=== PATIENT | male | born 1955 | race Caucasian/White ===

== ENCOUNTER → 2017-12-01 15:21 | Outpatient (CLI) | payer OTHER, SELFPAY ==
--- NOTE | 2017-12-01 15:27 | BD_ITS ---
STUDY: DUAL ENERGY X-RAY ABSORPTIOMETRY / DXA REASON FOR EXAM: Male, 62 years old. Loss of height. TECHNIQUE: Bone Mineral Density (BMD) measurements of lumbar spine and bilateral hips were obtained. COMPARISON: Comparison is made with prior study dated July 29, 2015. FINDINGS: Lumbar Spine (L1-L4): g/cm2 (1.008) / T-score (-1.6) / Z-score (-1.2) Findings are suggestive of osteopenia with a moderate fracture risk. Left Femur Total: g/cm2 (0.878) / T-score (-1.6) / Z-score (-1.0) Left Femoral Neck: g/cm2 (0.809) / T-score (-2.0) / Z-score (-1.0) Right Femur Total: g/cm2 (0.870) / T-score (-1.6) / Z-score (-1.1) Right Femoral Neck: g/cm2 (0.812) / T-score (-2.0) / Z-score (-1.0) The T-Scores on the most recent prior examination were: Lumbar Spine (L1-L4): There has been worsening of bone density since the previous examination. Left Femur Total: which represents an improvement of 0.5%. Right Femur Total: which represents a worsening of 1.0%. BD/Dexa Bone Density Study IMPRESSION: The patient is considered osteopenic as outlined below according to World [employer] Organization (WHO) criteria with a moderate fracture risk. There has been worsening of bone density since the previous examination. Reference Information: The T-score is the number of standard deviations above or below the standard which is normal for young adults at their peak bone mineral density. The World Health Organization (WHO) interprets the T-scores as follows: Above -1 Normal bone density Between -1 and -2.5 Osteopenia Equal to / or below -2.5 Osteoporosis As a practical clinical guideline, osteopenia may be graded as follows: Mild -1 through -1.5 Moderate -1.6 through -2.0 Severe -2.1 through -2.4 The Z-score is the number of standard deviations above or below age-matched controls. A Z-score of less than -1.5 would be considered abnormal. References: 1. NIH Osteoporosis and Related Bone Diseases http://www.osteo.org 2. International Society for Clinical Densitometry http://www.iscd.org 3. National Osteoporosis Foundation http://www.nof.org Electronically Signed: Keyon Reyes MD at 15:50 EDT Tel [phone], Service support ,
== END ==
PROVIDERS: Family Provider Family Medicine; PCP Family Medicine; Visit Provider Family Medicine
DX: M85.80 Other specified disorders of bone density and structure, unspecified site (principal); M94.9 Disorder of cartilage, unspecified
CPT/HCPCS: 77080

== ENCOUNTER → 2019-06-11 09:31 | Outpatient (CLI) | payer OTHER, SELFPAY ==
[2019-06-11 10:50] LABS: ALB/GLOB Ratio 0.8 RATIO (0.9-2.4); AST(SGOT) 31 U/L (15-37); Alanine Aminotransfer ALT/SGPT 42 U/L (16-61); Albumin, Serum 2.5 g/dL (3.2-5.0); Alkaline Phosphatase 167 U/L (45-117); Anion Gap 3 (5-15); BUN 17 mg/dL (7-18); BUN/Creat Ratio 14.7 RATIO (10-20); Calcium,Total 8.1 mg/dL (8.5-10.1); Chloride 111 mmol/L (98-107); Cholesterol 78 mg/dL (200); Creatinine, Serum 1.16 mg/dL (0.70-1.30); EST Glomerular Filtration Rate 67 mL/min (>60); Est Glom Filt Rate - Afr Amer 82 mL/min (>60); Globulin 3.2 g/dL (2.2-4.2); Glucose 86 mg/dL (74-106); High Density Lipoprotein 30 mg/dL; PSA,Total - Annual Screen 0.71 ng/mL (0.00-4.00); Potassium 4.2 mmol/L (3.5-5.1); Protein, Total 5.7 g/dL (6.4-8.2); Sodium Level 143 mmol/L (136-145); Triglycerides 83 mg/dL; Very Low Density Lipoprotein 17 mg/dL (5-40)
== END ==
PROVIDERS: PCP Family Medicine; Referring Provider Family Medicine; Visit Provider Family Medicine
DX: I10 Essential (primary) hypertension (principal); Z12.5 Encounter for screening for malignant neoplasm of prostate
CPT/HCPCS: 36415; 80053; 80061; 84153; G0103

== ENCOUNTER → 2019-09-04 16:20 | Outpatient (CLI) | payer OTHER, SELFPAY ==
[2019-09-05 08:28] LABS: Hepatitis B Surface Antibody Non-Reactive; Hepatitis B Surface Antigen Non-Reactive (Nonreactive); Hepatitis C Antibody Non-Reactive (Nonreactive)
[2019-09-07 03:06] LABS: QNTFERON TB Mitogen Value > 10.00 IU/mL (.); QNTFERON TB Nil Value 0.03 IU/mL (.); QNTFERON TB1+ Ag Value 0.18 IU/mL (.); QNTFERON TB2+ Ag Value 0.07 IU/mL (.)
[2019-09-07 08:30] LABS: Hepatitis B Core Ab Total Negative (Negative); QNTIFERON TB Positive Criteria Negative (Negative)
== END ==
PROVIDERS: PCP Family Medicine
DX: K50.012 Crohn's disease of small intestine with intestinal obstruction (principal)
CPT/HCPCS: 36415; 86480; 86704; 86706; 86803; 87340

== ENCOUNTER → 2019-11-16 17:55 | Outpatient (CLI) | payer OTHER, SELFPAY | PROVIDERS: PCP Family Medicine | DX: Z11.59 Encounter for screening for other viral diseases (principal) | CPT/HCPCS: 87635; G2023; U0003 ==

== ENCOUNTER 2019-12-12 19:52 | Emergency (ER) | payer OTHER, SELFPAY ==
[2019-12-12 19:53] VITALS: BP 127/82; PULSE 86; RESP 18; TEMP 37; O2SAT 96; BMI 22.6
[2019-12-12 20:34] LABS: Absolute Lymphocyte Count 1.16 X10^3/uL (0.83-4.51); Absolute Neutrophil Count 6.7 X10^3/uL (2.0-7.7); Basophil# 0.04 X10^3/uL; Basophil% 0.5 % (0-1); Eosinophil# 0.08 X10^3/uL; Eosinophils% 0.9 % (0-5); Hematocrit 35.3 % (40-54); Hemoglobin 11.4 g/dL (13.0-16.5); Lymphocyte # 1.16 X10^3/ul (4.0); Lymphocyte % 13.2 % (19-41); Mean Corp Hgb Conc 32.3 g/dL (32-36); Mean Corpuscular Hgb 28.9 pg (27.0-32.0); Mean Corpuscular Volume 89.4 fL (80-94); Mean Platelet Vol. 12.5 fl (6.2-12.0); Monocyte% 9.1 % (0-10); NRBC Flagged by Analyzer 0 % (0-5); Neutrophil # 6.66 X10^3/uL (2.7-7.7); Platelet Count 298 K/mm3 (150-450); RBC Distribution Width CV 13.5 % (11.6-14.6); RBC Distribution Width SD 44.8 fl (35.1-43.9); Red Blood Count 3.95 M/mm3 (4.6-6.2); White Blood Count 8.8 K/mm3 (4.4-11.0)
[2019-12-12 20:53] LABS: Anion Gap 5 (5-15); BUN 19 mg/dL (7-18); BUN/Creat Ratio 20.7 RATIO (10-20); Calcium,Total 7.8 mg/dL (8.5-10.1); Chloride 107 mmol/L (98-107); Creatinine, Serum 0.92 mg/dL (0.70-1.30); EST Glomerular Filtration Rate 88 mL/min (>60); Est Glom Filt Rate - Afr Amer 107 mL/min (>60); Estimated Creatinine Clearance 84.31 ml/min; Glucose 117 mg/dL (74-106); Potassium 3.8 mmol/L (3.5-5.1); Sodium Level 141 mmol/L (136-145)
--- NOTE | 2019-12-12 21:35 | CT_ITS ---
STUDY: CT ABDOMEN AND PELVIS WITH CONTRAST REASON FOR EXAM: Male, 64 years old. UPPER ABD PAIN, NAUSEA, DIARRHEA, HX SMALL BOWEL REMOVED DUE TO CHRONS RADIATION DOSAGE (If Supplied By Facility): CTDIvol = ( 9.97 ) mGy, DLP = ( 545.49 ) mGycm TECHNIQUE: Transaxial images were obtained from the dome of the diaphragm to the symphysis pubis without oral contrast. Oral and amp; IV Breeza and amp; 100mL Isovue-370 was administered. Sagittal and coronal images were reconstructed. Individualized dose optimization techniques were used for this CT. COMPARISON: None. FINDINGS: The visualized lung bases are unremarkable. The visualized portions of the heart are within normal limits. Markedly abnormal GI tract. Distended stomach filled with fluid almost all of the small bowel is markedly distended filled with reduction with a transition point seen in the anterior lower abdomen just to the right midline on axial image [id number] and coronal images 15-5. Beyond this point there is collapsed, normal caliber small bowel leading up to a markedly distended filled bowel in greatest dimension in the right upper quadrant. Surgical clips are seen in same area, findings could represent obstruction related to combination of active Crohn''s disease with narrowing, and stricture from surgical anastomosis. Several distended small bowel are surrounded by edema, especially in the mid and upper right abdomen where there is free fluid. There is also free fluid in the pelvis. Normal large bowel. Normal appendix. Normal liver. Distended gallbladder, and normal extrahepatic biliary system. Normal spleen. Normal pancreas. Normal bilateral adrenal glands. Normal right kidney. Normal left kidney. Segmental bilateral tiny parenchymal cysts. Normal abdominal aorta. Normal inferior vena cava. Normal retroperitoneum. Normal urinary bladder. Normal abdominal wall. Normal osseous structures. CT/Abdomen/Pelvis WITH Contrast IMPRESSION: Markedly abnormal GI tract. Findings most consistent with severe distal small bowel obstruction probably related to a combination of stricture from active Crohn''s disease, and possibly also postsurgical stricture. Small amount of free fluid. Electronically Signed: Leo Monge MD at 23:37 EDT , Service support ,
[2019-12-12 21:39] LABS: AST(SGOT) 24 U/L (15-37); Alanine Aminotransfer ALT/SGPT 30 U/L (16-61); Albumin, Serum 2.2 g/dL (3.2-5.0); Alkaline Phosphatase 134 U/L (45-117); Globulin 3.1 g/dL (2.2-4.2); Lipase 67 U/L (73-393); Protein, Total 5.3 g/dL (6.4-8.2)
--- NOTE | 2019-12-12 22:09 | ED.VIS.GEN ---
History of Present Illness <Darlene Caraballo - Last Filed: 12/13/19 01:02> Informant: Patient Narrative: Patient is a 64-year-old male with a history of Crohn's disease and hypertension who presents to the emergency department for abdominal pain as well as nausea/vomiting. Initial symptoms started yesterday. Last week he did have a similar episode which lasted a few days. He was not seen at that time and it did pass on its own. He states that the pain comes and goes. He currently rates it as a 2 out of 10 in the epigastric/right upper quadrant. Does get up to an 8 out of 10 at times. He describes it as a tight pain. He does not know aggravating or relieving factors. He is on Humira for his Crohn's disease. He has been compliant. He does have a history of bowel obstruction and believes that this is similar symptoms to what he has had previously. He has had 2 resections due to obstructions in the past. No other abdominal surgeries. Denies any fevers or chills. Last bowel movement was yesterday and was normal. Denies any black or tarry stools. Denies any blood in stool. Denies any urinary symptoms. History of kidney stones but does not have any flank pain. <JimmyMiller - Last Filed: 12/13/19 17:47> Chief Complaint: Abd Pain Past Medical History <Darlene Caraballo - Last Filed: 12/13/19 01:02> Prior records reviewed: Yes Past Medical History: - - Crohn's, hypertension Surgical History: - - Operations for small bowel obstructions. Drugs: None <CoydieterMiller - Last Filed: 12/13/19 17:47> - Allergies and Home Meds Allergies/Adverse Reactions: Allergies Penicillins Allergy (Verified 12/12/19 19:55) Rash Primary Care Physician: Pal Johnson MD [Primary Care Provider] - Review of Systems All systems negative except as indicated General: Denies: Chills, Fever, Sweats Eyes: Denies: Visual changes - bilaterally, Diplopia ENT: Denies: Rhinorrhea, Sore throat Cardiovascular: Denies: Chest pain, Palpitations Respiratory: Denies: Dyspnea, Cough, Dyspnea on exertion Gastrointestinal: Reports: Abdominal pain, Nausea, Vomiting. Denies: Diarrhea, Melena, Hematochezia Genitourinary: Denies: Dysuria, Hematuria, Frequency Musculoskeletal: Denies: Back pain, Extremity Pain Skin: Denies: Rash, Wounds Neurological: Denies: Headache, Weakness, Numbness <CoyryderzeinaMiller - Last Filed: 12/13/19 17:47> Physical Exam Vital Signs/Narrative: Vital Signs Resp 12/12/19 22:54 18 <Darlene Caraballo - Last Filed: 12/13/19 01:02> Vital Signs/Narrative: Vital Signs Temp Pulse Resp BP Pulse Ox 12/12/19 19:53 98.6 F 86 18 127/82 H 96 Inital Vital Signs reviewed: Yes General: Well nourished, Well developed, No Acute Distress Head: Normocephalic, Atraumatic Eyes: Perrl, EOMI ENT: Moist mucous membranes, No rhinorrhea Neck: Supple, Nontender Cardiovascular: Regular rate, Regular rhythm, No murmurs Respiratory: No distress, CTA bilaterally, Chest nontender Abdomen: Soft, Nondistended, Normal bowel sounds, Tender - Mostly in the right upper quadrant as well as epigastrium, - - No pain over McBurney's point.. Negative for: Guarding, Rebound tenderness Back: Nontender, Normal Inspection. Negative for: CVA tenderness, Spinal tenderness Extremities: Nontender, No edema. Negative for: Edema, Calf Tenderness Skin: Normal color, No rash Neurological: Alert, Oriented x3, Cranial nerves II-XII grossly intact, Normal Strength, Normal Sensation Psychological: Normal affect, Normal Mood <Miller Marquez - Last Filed: 12/13/19 17:47> Diagnostic/Tx/Re-eval Clinical Impression(s) from Imaging Studies Abdomen/Pelvis CT 12/12/19 21:35 IMPRESSION: Markedly abnormal GI tract. Findings most consistent with severe distal small bowel obstruction probably related to a combination of stricture from active Crohn''s disease, and possibly also postsurgical stricture. Small amount of free fluid. Electronically Signed: Leo Monge MD at 23:37 EDT , Service support , Laboratory Data 12/12/19 12/12/19 12/12/19 20:25 20:25 20:25 WBC 8.8 RBC 3.95 L Hgb 11.4 L Hct 35.3 L MCV 89.4 MCH 28.9 MCHC 32.3 RDW Std Deviation 44.8 H RDW Coeff of Axel 13.5 Plt Count 298 MPV 12.5 H Immature Gran % (Auto) 0.300 Neut % (Auto) 76.0 H Lymph % (Auto) 13.2 L [place] % (Auto) 9.1 Eos % (Auto) 0.9 Baso % (Auto) 0.5 Absolute Neuts (auto) 6.7 Absolute Lymphs (auto) 1.16 Nucleated RBC % 0 Sodium 141 Potassium 3.8 Chloride 107 Carbon Dioxide 29.0 Anion Gap 5 BUN 19 H Creatinine 0.92 Estim Creat Clear Calc 84.31 Est GFR (MDRD) Af Amer 107 Est GFR (MDRD) Non-Af 88 BUN/Creatinine Ratio 20.7 H Glucose 117 H Calcium 7.8 L Total Bilirubin 0.30 Direct Bilirubin 0.10 AST 24 ALT 30 Alkaline Phosphatase 134 H Total Protein 5.3 L Albumin 2.2 L Globulin 3.1 Lipase 67 L - Medical Decision Making Signed out to me by Dr. Marquez. CT scan shows market dilation of the small bowel with a transition point distally. NG tube is placed. Patient is requesting transfer back to [facility] where he sees all of his specialist and has had his prior care for his mall bowel obstructions. Given that patient is a complex medical history of prior surgeries no issue I think that is medically indicated that he go back to [facility]. Patient has 600 cc of feculent gastric content immediately out of his NG tube. He is given morphine for pain control as well as maintenance fluids. Is accepted to [facility] by Dr. Hopkins to the ED. <Darlene Caraballo - Last Filed: 12/13/19 01:02> - Medical Decision Making Patient presents to the ED for abdominal pain and nausea/vomiting. He does relate this to his history of small bowel obstructions with his Crohn's history. On physical exam vital signs within normal limits. Does have tenderness on exam. Given his history we will do a CT scan of the abdomen/pelvis. Basic lab work obtained. Patient does not wear anything for pain at this time as it is not currently flared up. Lab work did not reveal any significant acute abnormality. Currently waiting on CT scan. Will do with IV and oral contrast. This is the end of my shift so will sign out to oncoming attending. Disposition based on CT scan findings. <Miller Marquez - Last Filed: 12/13/19 17:47> ED Disposition <Darlene Caraballo - Last Filed: 12/13/19 01:02> <Miller Marquez - Last Filed: 12/13/19 17:47> - Plan for ED Patient: Disposition: [facility] Diagnosis: Small bowel obstruction, History of Crohn's disease Referrals: Pal Johnson MD [Primary Care Provider] -
[2019-12-12 22:54] VITALS: RESP 18
[2019-12-12] MEDS: Lidocaine 4% 5 ML Ampul 2 ML INHALATION (23:53)
--- NOTE | 2019-12-13 00:02 | RAD_ITS ---
STUDY: X-RAY - ABDOMEN/PELVIS REASON FOR EXAM: Male, 64 years old. ng tube placement TECHNIQUE: Frontal view COMPARISON: None. FINDINGS: The NG tube is in the stomach. There are dilated and air-filled loops of small bowel and colon suggesting generalized ileus. There is NO bowel wall thickening. There is no demonstrated free abdominal air. The visualized liver, spleen and kidneys are grossly normal in size and morphology. Normal soft tissue structures. Normal visualized osseous structures. RAD/Abdomen Single View (Portable) IMPRESSION: The NG tube is properly in the stomach. Electronically Signed: Mikel River MD at 0:40 EDT , Service support ,
[2019-12-13] MEDS: Morphine 4 MG/ML Syringe IV (01:12)
[2019-12-13] MEDS: 0.9% Normal Saline 1,000 ML 125 ML IV (01:13)
[2019-12-13] MEDS: Oxymetazoline 0.05% 1 SPRAY SPRAY.BTL 2 SPRAY NASAL (01:13)
[2019-12-13 01:14] VITALS: BP 135/86; PULSE 83; RESP 16; O2SAT 99
[2019-12-13 01:26] VITALS: BP 135/86; PULSE 83; RESP 16; TEMP 36.7; O2SAT 99
== END 2019-12-13 02:58 | disposition short-term general hospital (02) ==
LOC: ED 21:39
PROVIDERS: Emergency Provider Emergency Medicine; PCP Family Medicine
DX: K56.609 Unspecified intestinal obstruction, unspecified as to partial versus complete obstruction (principal); I10 Essential (primary) hypertension
CPT/HCPCS: 74018; 74177; 80048; 80076; 83690; 85025; 94640; 96361; 96374; 99285; J7030; Q9967; A4216

== ENCOUNTER → 2020-08-05 14:23 | Outpatient (CLI) | payer OTHER, SELFPAY ==
--- NOTE | 2020-08-05 14:27 | BD_ITS ---
STUDY: DUAL ENERGY X-RAY ABSORPTIOMETRY / DXA REASON FOR EXAM: Male, 65 years old. 733.90OsteopeniaBONE DENSITY REASON FOR EXAM TECHNIQUE: Bone Mineral Density (BMD) measurements of lumbar spine and bilateral hips were obtained. COMPARISON: Comparison is made with prior study dated 12/01/2017. FINDINGS: Lumbar Spine (L1-L4): g/cm2 (1.087) / T-score (-1.0) / Z-score (-0.6) Findings are suggestive of normal bone density with a low fracture risk. Left Femur Total: g/cm2 (0.825) / T-score (-1.9) / Z-score (-1.4) Left Femoral Neck: g/cm2 (0.768) / T-score (-2.3) / Z-score (-1.2) Right Femur Total: g/cm2 (0.814) / T-score (-2.0) / Z-score (-1.4) Right Femoral Neck: g/cm2 (0.753) / T-score (-2.4) / Z-score (-1.3) The T-Scores on the most recent prior examination were: Lumbar Spine (L1-L4): There has been improvement of bone density since the previous examination. Left Femur Total: which represents a worsening of 6%. Right Femur Total: which represents a worsening of 6.4%. BD/Dexa Bone Density Study IMPRESSION: The patient is considered osteoporotic as outlined below according to World [employer] Organization (WHO) criteria with a high fracture risk. There has been worsening of bone density since the previous examination. Reference Information: The T-score is the number of standard deviations above or below the standard which is normal for young adults at their peak bone mineral density. The World Health Organization (WHO) interprets the T-scores as follows: Above -1 Normal bone density Between -1 and -2.5 Osteopenia Equal to / or below -2.5 Osteoporosis As a practical clinical guideline, osteopenia may be graded as follows: Mild -1 through -1.5 Moderate -1.6 through -2.0 Severe -2.1 through -2.4 The Z-score is the number of standard deviations above or below age-matched controls. A Z-score of less than -1.5 would be considered abnormal. References: 1. NIH Osteoporosis and Related Bone Diseases www osteo.org 2. International Society for Clinical Densitometry www iscd.org 3. National Osteoporosis Foundation www nof.org Electronically Signed: Keyon Reyes MD at 14:00 EDT , Service support ,
== END ==
PROVIDERS: PCP Family Medicine; Referring Provider Family Medicine; Visit Provider Family Medicine
DX: M85.80 Other specified disorders of bone density and structure, unspecified site (principal)
CPT/HCPCS: 77080

== ENCOUNTER → 2020-08-18 09:42 | Outpatient (CLI) | payer OTHER, SELFPAY ==
[2020-08-18 12:58] LABS: Cholesterol 126 mg/dL (200); High Density Lipoprotein 41 mg/dL; PSA,Total - Annual Screen 0.75 ng/mL (0.00-4.00); Triglycerides 69 mg/dL; Very Low Density Lipoprotein 14 mg/dL (5-40)
== END ==
PROVIDERS: PCP Family Medicine; Visit Provider Family Medicine
DX: I10 Essential (primary) hypertension (principal); Z12.5 Encounter for screening for malignant neoplasm of prostate
CPT/HCPCS: 36415; 80061; 84153; G0103

== ENCOUNTER → 2022-04-19 | Outpatient (CLI) | payer MEDICARE, OTHER, SELFPAY ==
[2022-04-19 15:22] LABS: Absolute Lymphocyte Count 1.54 X10^3/uL (0.83-4.51); Absolute Neutrophil Count 3.5 X10^3/uL (2.0-7.7); Basophil# 0.05 X10^3/uL; Basophil% 0.9 % (0-1); Eosinophil# 0.12 X10^3/uL; Eosinophils% 2.1 % (0-5); Hematocrit 47.1 % (40-54); Hemoglobin 15.6 g/dL (13.0-16.5); Lymphocyte # 1.54 X10^3/ul (0.83-4.51); Lymphocyte % 27.4 % (19-41); Mean Corp Hgb Conc 33.1 g/dL (32-36); Mean Corpuscular Volume 93.5 fL (80-94); Mean Platelet Vol. 12.7 fl (6.2-12.0); Monocyte% 7.1 % (0-10); NRBC Flagged by Analyzer 0 % (0-5); Neutrophil # 3.49 X10^3/uL (2.7-7.7); Neutrophil % 62.1 % (47-70); Platelet Count 176 K/mm3 (150-450); RBC Distribution Width CV 13.8 % (11.6-14.6); Red Blood Count 5.04 M/mm3 (4.6-6.2); White Blood Count 5.6 K/mm3 (4.4-11.0)
[2022-04-19 15:50] LABS: Microalbumin,Random Urine 36.9 mg/L (NO RANGE EST.)
[2022-04-19 15:55] LABS: ALB/GLOB Ratio 1.2 RATIO (0.9-2.4); AST(SGOT) 26 U/L (15-37); Alanine Aminotransfer ALT/SGPT 45 U/L (16-61); Albumin, Serum 3.5 g/dL (3.2-5.0); Alkaline Phosphatase 130 U/L (45-117); Anion Gap 6 (5-15); BUN 15 mg/dL (7-18); BUN/Creat Ratio 16.1 RATIO (10-20); Calcium,Total 8.6 mg/dL (8.5-10.1); Chloride 108 mmol/L (98-107); Cholesterol 97 mg/dL (200); Creatinine, Serum 0.93 mg/dL (0.70-1.30); EST Glomerular Filtration Rate 86 mL/min (>60); Est Glom Filt Rate - Afr Amer 104 mL/min (>60); Globulin 2.9 g/dL (2.2-4.2); Glucose 89 mg/dL (74-106); High Density Lipoprotein 35 mg/dL; Protein, Total 6.4 g/dL (6.4-8.2); Sodium Level 142 mmol/L (136-145); Triglycerides 78 mg/dL; Very Low Density Lipoprotein 16 mg/dL (5-40)
== END | disposition home or self-care (01) ==
LOC: MFPLAB 12:17
PROVIDERS: PCP Family Medicine; Visit Provider Family Medicine
DX: I10 Essential (primary) hypertension (principal)
CPT/HCPCS: 36415; 80053; 80061; 82043; 85025

== ENCOUNTER → 2023-04-18 | Outpatient (CLI) | payer MEDICARE, OTHER, SELFPAY ==
[2023-04-18 16:02] LABS: Microalbumin,Random Urine 34.3 mg/L (NO RANGE EST.); Microalbumin:Creatinine Ratio 11.2 mg/g CRE (<30 mg/g CRE)
[2023-04-18 16:19] LABS: Vitamin D,25 Hydroxy 47.7 ng/mL
[2023-04-18 16:33] LABS: ALB/GLOB Ratio 1.1 RATIO (0.9-2.4); AST(SGOT) 26 U/L (15-37); Alanine Aminotransfer ALT/SGPT 26 U/L (16-61); Albumin, Serum 3.5 g/dL (3.2-5.0); Alkaline Phosphatase 129 U/L (45-117); Anion Gap 6 (5-15); BUN 15 mg/dL (7-18); BUN/Creat Ratio 14.3 RATIO (10-20); Calcium,Total 8.4 mg/dL (8.5-10.1); Chloride 110 mmol/L (98-107); Cholesterol 117 mg/dL (200); Creatinine, Serum 1.05 mg/dL (0.70-1.30); EST Glomerular Filtration Rate 75 mL/min (>60); Est Glom Filt Rate - Afr Amer 90 mL/min (>60); Globulin 3.3 g/dL (2.2-4.2); Glucose 94 mg/dL (74-106); High Density Lipoprotein 36 mg/dL; PSA,Total - Annual Screen 0.83 ng/mL (0.00-4.00); Potassium 3.9 mmol/L (3.5-5.1); Protein, Total 6.8 g/dL (6.4-8.2); Sodium Level 143 mmol/L (136-145); Triglycerides 107 mg/dL; Very Low Density Lipoprotein 21 mg/dL (5-40)
== END | disposition home or self-care (01) ==
LOC: MFPLAB 11:14
PROVIDERS: PCP Family Medicine; Visit Provider Family Medicine
DX: M85.80 Other specified disorders of bone density and structure, unspecified site (principal); I10 Essential (primary) hypertension; Z12.5 Encounter for screening for malignant neoplasm of prostate
CPT/HCPCS: 36415; 80053; 80061; 82043; 82306; 82570; 84153; G0103

== ENCOUNTER → 2024-05-01 | Outpatient (CLI) | payer MEDICARE, OTHER, SELFPAY ==
[2024-05-01 12:14] LABS: Absolute Neutrophil Count 4.6 X10^3/uL (2.0-7.7); Basophil# 0.06 X10^3/uL; Basophil% 0.8 % (0-1); Eosinophil# 0.23 X10^3/uL; Eosinophils% 3.1 % (0-5); Hematocrit 46.4 % (40-54); Hemoglobin 15.5 g/dL (13.0-16.5); Lymphocyte % 27.9 % (19-41); Mean Corp Hgb Conc 33.4 g/dL (32-36); Mean Corpuscular Hgb 31.4 pg (27.0-32.0); Mean Corpuscular Volume 93.9 fL (80-94); Mean Platelet Vol. 12.6 fl (6.2-12.0); Monocyte% 6.6 % (0-10); NRBC Flagged by Analyzer 0 % (0-5); Neutrophil # 4.63 X10^3/uL (2.7-7.7); Neutrophil % 61.3 % (47-70); Platelet Count 175 K/mm3 (150-450); RBC Distribution Width CV 13.4 % (11.6-14.6); Red Blood Count 4.94 M/mm3 (4.6-6.2); White Blood Count 7.5 K/mm3 (4.4-11.0)
[2024-05-01 12:37] LABS: AST(SGOT) 24 U/L (15-37); Alanine Aminotransfer ALT/SGPT 26 U/L (16-61); Albumin, Serum 3.3 g/dL (3.2-5.0); Alkaline Phosphatase 126 U/L (45-117); Anion Gap 5 (5-15); BUN 20 mg/dL (7-18); BUN/Creat Ratio 20.6 RATIO (10-20); Calcium,Total 8.4 mg/dL (8.5-10.1); Chloride 108 mmol/L (98-107); Cholesterol 100 mg/dL (200); Creatinine, Serum 0.97 mg/dL (0.70-1.30); EST Glomerular Filtration Rate 82 mL/min (>60); Est Glom Filt Rate - Afr Amer 99 mL/min (>60); Globulin 3.4 g/dL (2.2-4.2); Glucose 89 mg/dL (74-106); High Density Lipoprotein 36 mg/dL; PSA,Total - Annual Screen 0.87 ng/mL (0.00-4.00); Protein, Total 6.7 g/dL (6.4-8.2); Sodium Level 139 mmol/L (136-145); Triglycerides 76 mg/dL; Very Low Density Lipoprotein 15 mg/dL (5-40)
== END | disposition home or self-care (01) ==
LOC: MFPLAB 09:51
PROVIDERS: PCP Family Medicine; Referring Provider Family Medicine; Visit Provider Family Medicine
DX: Z00.00 Encounter for general adult medical examination without abnormal findings (principal); Z12.5 Encounter for screening for malignant neoplasm of prostate; Z13.1 Encounter for screening for diabetes mellitus; Z13.220 Encounter for screening for lipoid disorders
CPT/HCPCS: 36415; 80053; 80061; 84153; 85025; G0103

== ENCOUNTER → 2025-05-01 | Outpatient (CLI) | payer MEDICARE, OTHER, SELFPAY ==
[2025-05-01 12:16] LABS: PSA,Total - Annual Screen 1.08 ng/mL (0.02-4.00)
== END | disposition home or self-care (01) ==
LOC: MFPLAB 09:35
PROVIDERS: PCP Family Medicine
DX: Z13.1 Encounter for screening for diabetes mellitus (principal); Z12.5 Encounter for screening for malignant neoplasm of prostate
CPT/HCPCS: 36415; 83036; 84153; G0103